=== PATIENT | male | born 1965 | race Caucasian/White ===

== ENCOUNTER → 2024-05-15 07:44 | Outpatient (BNVA) | payer BC, SELFPAY | PROVIDERS: PCP Nurse Practitioner Family; Visit Provider Nurse Practitioner | DX: S46.812A Strain of other muscles, fascia and tendons at shoulder and upper arm level, left arm, initial encounter; S46.012A Strain of muscle(s) and tendon(s) of the rotator cuff of left shoulder, initial encounter; M19.012 Primary osteoarthritis, left shoulder; X58.XXXA Exposure to other specified factors, initial encounter | CPT/HCPCS: 36415; 73030; 80053; 83036; 85025 ==

== ENCOUNTER 2024-05-19 07:47 | Day surgery (SDC) | payer BC, SELFPAY ==
[2024-05-19] VITALS (11 sets, daily range): BP systolic 103–127; BP diastolic 66–86; PULSE 46–69; RESP 10–22; TEMP 36.4–36.5; O2SAT 96–100; BMI 24.2
[2024-05-19] MEDS: acetaminophen 1,000 MG/100 ML PIGGYBACK 400 MG IV (08:25)
[2024-05-19] MEDS: sodium chloride 0.9% 1,000 ML 30 ML IV (08:28)
[2024-05-19] MEDS: CELEcoxib 200 mg Capsule 400 MG PO (08:31)
[2024-05-19] MEDS: gabapentin 300 mg Capsule PO (08:32)
--- NOTE | 2024-05-19 09:06 | P.HPUD_ITS ---
Surgery/Procedure H&P Update DATE OF PROCEDURE: May 19, 2024 DATE H&P PERFORMED: 05/15/24 H&P UPDATE INFORMATION: I have reviewed H&P completed within last 30 days, No changes to prior documentation and [place] [facility] date indicated PRIMARY INDICATION FOR PROCEDURE: MRI Impression: 1. Complete tear of the supraspinatus and infraspinatus with retraction to the AC joint. Associated muscular atrophy. 2. High-grade subscapularis tear with subluxation of the biceps tendon on the groove. 3. Severe acromioclavicular inflammatory change with associated synovial cyst. PLANNED PROCEDURE: Operation Date: 05/19/24 10:00 Proposed Procedures p Rotator Cuff Repair - Open(Left) - Suzette Gutierrez MD s Distal Clavicle Resection(Left) - Suzette Gutierrez MD Related Problem List Diagnoses (1) Osteoarthritis of left AC (acromioclavicular) joint: (2) Traumatic rupture of supraspinatus tendon of left shoulder: Qualifiers: Encounter type: initial encounter Qualified Code(s): S46.812A - Strain of other muscles, fascia and tendons at shoulder and upper arm level, left arm, initial encounter (3) Traumatic rupture of left infraspinatus tendon:
--- NOTE | 2024-05-19 09:27 | ANES.PREANE2 ---
Pre-Anesthetic Assessment Height/Weight: Height 1.68 m Weight 68.039 kg Temp Pulse Resp BP Pulse Ox O2 Del Method 97.7 F 46 L 16 127/86 100 Room Air 05/19/24 08:12 05/19/24 08:12 05/19/24 08:12 05/19/24 08:12 05/19/24 08:12 05/19/24 08:18 Operation Date: 05/19/24 10:00 Proposed Procedures p Rotator Cuff Repair - Open(Left) - Suzette Gutierrez MD s Distal Clavicle Resection(Left) - Suzette Gutierrez MD Familial anesthetic complications: None Was Beta Alexandra taken within 24 hours: N/A Was Clonidine taken within 24 hours: N/A Last intake: Intake Last Liquid Date 05/18/24 Last Liquid Time 20:30 Last Solid Date 05/18/24 Last Solid Time 20:00 Social Tobacco (Chewed at 0200) and No alcohol Exam alert, oriented x 3, clear to auscultation bilaterally and regular rate & rhythm Airway Mallampati: Class IV Dentition: full Anesthetic Plan ASA status: 1 Anesthesia: General and Regional (specify below) Risk of > 500 ml blood loss (7ml/kg in children): No Medications/Allergies Home Medications Medication Instructions Recorded Confirmed Last Taken Type garlic 300 mg PO DAILY 05/18/24 05/18/24 05/13/24 History omega-3 fatty acids 1,000 mg PO DAILY 05/18/24 05/18/24 05/13/24 History Allergies Allergy/AdvReac Type Severity Reaction Status Date / Time No Known Allergies Allergy Verified 05/18/24 15:55 Current Medications Generic Name Dose Route Start Last Admin Trade Name Freq PRN Reason Stop Dose Admin Sodium Chloride 1,000 mls @ 30 mls/hr 05/19/24 08:15 05/19/24 08:28 Sodium Chloride 0.9% IV 05/20/24 08:14 30 mls/hr .Q24H ALECIA Administration PFSH Anesthesia Social History Smoking and tobacco/nicotine status: never used tobacco/nicotine Data Anesthesia Cardiac Studies: No Data to Display
--- NOTE | 2024-05-19 09:28 | ANES.PROC ---
Anesthesia Procedures Procedure/Date: 05/19/24 Nerve Block ^: Nerve Block 1: Main Anesthesia: general anesthesia Time Out Performed: Yes Consent: requested by attending/covering physician, from patient, from other, risks and benefits reviewed and patient agrees to proceed Nerve block location: interscalene (L) Anesthesia monitors applied: pulse oximetry, EKG, BP cuff and oxygen Nerve block position: semi sitting Anesthetic Used: ropivicaine 0.5% (20 ml) and with decadron (4 mg) Ultrasound used to: recognize landmarks, visualize and ID brachial plexus, in supraclavicular region and visualize and ID interscalene groove Nerve Stimulator Used?: No Interscalene/Femoral BLK: 2 stimuplex 22 g needle used for position and inplane approach, visualize local anesthetic spread and no vascular puncture identified Injection: neg aspiration of heme Patient Tolerated Procedure: well Complications: none
[2024-05-19] MEDS: ceFAZolin 2,000 mg SDV 2000 MG IVP (09:31)
--- NOTE | 2024-05-19 10:34 | SUR.OPER ---
Parish LOYD DRAWN 50ML OF PT'S BLOOD. PLACED 50ML IN TO ELISABET WHOLE BLOOD BAG SIDE. PLACED 6ML ACD-A INTO THE WHOLE BLOOD. EXP DATE 04/16. STARTED ELISABET MACHINE. RECEIVED 2ML OF PRP AND 20ML PPP.
[2024-05-19] MEDS: ceFAZolin 1,000 mg SDV 1000 MG IRRIGATION (10:46)
--- NOTE | 2024-05-19 11:27 | SUR.OPER ---
1125 2ml PRP placed into left shoulder joint by Dr. Gutierrez
--- NOTE | 2024-05-19 13:20 | ANE.PACU2 ---
Inpatient post-anesthesia follow up: Airway intact: Yes Vital signs: Temperature 97.7 F Pulse Rate 62 Respiratory Rate 17 Blood Pressure 118/68 Pulse Oximetry 98 Oxygen Delivery Me thod Room Air Oxygen Flow Rate 2 Fraction of Inspir ed Oxygen Hydration adequate: Yes Nausea and vomiting: No Pain level: 1 Mental status: Baseline
--- NOTE | 2024-05-19 14:34 | PM.OP ---
Operative Report Date of procedure: May 19, 2024 Pre-op diagnosis: Left shoulder complete rotator cuff tear with acromioclavicular osteoarthritis, biceps tendinitis, and glenohumeral joint osteoarthritis Post-op diagnosis: Left shoulder complete rotator cuff tear with acromioclavicular osteoarthritis, biceps tendinitis, bursitis, and glenohumeral joint osteoarthritis Post-op findings: Complete rotator cuff tear of the left supraspinatus, infraspinatus, and significant biceps tendinitis with complete denudement of the humeral head posteriorly Procedure done: Left shoulder partial rotator cuff repair with biceps tenodesis, resection of distal clavicle, and acromioplasty with bursectomy Implants: None Specimens removed/disposition: Bursa, disposed of and distal clavicle, disposed of Pathology: None Surgeon: Suzette Gutierrez MD Tar Heater Operator: Sheila Middleton, nurse practitioner, whose services were required for completion of the surgical procedure, positioning of the arm, retraction of soft tissues and completion of the surgical procedure Anesthesia: General (Intubated, ASA 1 with supplemental interscalene block) Estimated blood loss (mL): 20 IV fluids (mL): 1,000 Urine output (mL): 0 (No Vaughn) Complications: None Findings: Very large rotator cuff tear involving the infraspinatus supraspinatus and a portion of the subscapularis with obvious significant tendinitis and thickening of the biceps tendon at the biceps groove Condition: stable Disposition: PACU (Then return to same-day surgery for discharge to home) Brief History: This 59-year-old gentleman presented to the office complaining of severe left shoulder pain. At the time of initial presentation, the patient rated his pain at 5 of 10. Previously, the patient began lifting weights in an attempt to become healthier and lose weight. While lifting weights, he noted that he was doing arm curls with 15 pounds weights and the weight tipped while he was holding it and he felt his shoulder pop. 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 He had an MRI and workup at [facility] and presented to the office. The MRI demonstrated a complete tear of the infraspinatus and supraspinatus with retraction to the acromioclavicular joint. There was associated muscle atrophy with a high-grade subscapularis tear and subluxation of the biceps tendon as well as severe acromioclavicular inflammatory change with associated synovial cyst. After being seen and evaluated in the office, the patient was offered surgical intervention in the form of acromioplasty with distal clavicle resection and evaluation of the rotator cuff to assess for possible repair. Patient understood, consents were signed, questions were answered. He presents today for this surgery. Procedure: The patient was brought to the operating theater and underwent general intubated anesthesia, ASA 1 with supplemental interscalene block.. The patient was placed in a beachchair position and subsequently the left upper extremity was prepped and draped in the usual fashion utilizing DuraPrep. The arm was draped free. A surgical pause was performed prior to commencement of the surgical procedure. At the time of the surgical pause, we confirmed the site and side of surgery as well as administration of appropriate preoperative antibiotics Ancef 2 g. MRI was also reviewed at that time. Following the surgical pause, an incision was made at approximately the level of the acromioclavicular joint extending across the anterolateral corner of the acromion and distally as necessary. Care was taken to avoid injury to the axillary nerve by limiting the distal extent of the incision. Dissection continued through skin and soft tissues using a scalpel. Hemostasis was obtained using electrocautery. Soft tissues were elevated off the acromion and the acromioclavicular joint. Attention was then directed to the acromioclavicular joint which was noted to be quite arthritic. There was significant synovitis about this area as well consistent with findings on the MRI. Distal clavicle was resected uneventfully. After it was resected, the undersurface of the clavicle was smoothed. There was noted to be a very large pointy type osteophyte off of the undersurface of the acromioclavicular joint. Both the undersurface and upper surface of the clavicle were smoothed using a power rasp. This was accomplished, the area was palpated to ensure there were no further osteophyte and attention was directed to the acromion. There was noted to be significant subacromial impingement with a large subacromial osteophyte as well. An acromioplasty was then accomplished using a combination of a saw and a power rasp. With this, we were able to remove compression caused by the acromion. The rotator cuff was then evaluated to look for tears. Shoulder was placed through full range of motion. There was noted to be a complete tear of the infraspinatus and supraspinatus tendons which were retracted back nearly to the glenoid. Anteriorly, there was a tear in the subscapularis which was horizontal in nature. The biceps tendon demonstrated evidence of tenosynovitis as well, but this was located within the trochlear groove. After the acromioplasty was accomplished, the rotator cuff edges were freshened and were sutured utilizing 0 Ethibond in interrupted fashion. We were able to close the anterior portion of the supraspinatus as well as the extension of the tear into the subscapularis. With this, we also performed a biceps tenodesis suturing the tendon at the groove and also to the available rotator cuff tissue. Intra-articular resection of the biceps tendon was not accomplished as it was felt to be an effective head depressor. Once this was accomplished the shoulder was again put through range of motion. The wound was irrigated and closure was accomplished with 0 Vicryl in the capsular tissues overlying the acromioclavicular joint area as well as over the acromion and down into the deltoid muscle. 3-0 Monocryl was used to close the subcutaneous tissues followed by 4-0 Monocryl subcuticular closure. This was followed by Dermabond, Steri-Strips, Telfa, and Tegaderm. The patient was placed in a slingshot style sling and was returned to the recovery room in satisfactory condition. The patient will be discharged to home to follow-up in the office as scheduled. There were no complications and no specimens. Related Problem List Diagnoses (1) Traumatic rupture of supraspinatus tendon of left shoulder: (2) Traumatic rupture of left infraspinatus tendon: (3) Osteoarthritis of left AC (acromioclavicular) joint: (4) Primary osteoarthritis, left shoulder:
== END 2024-05-19 13:20 | disposition home or self-care (01) ==
PROVIDERS: PCP Nurse Practitioner Family; Visit Provider Specialist
PROC: (CPT 23430; principal; 2024-05-19 09:40)
PROC: (CPT 23120; 2024-05-19 09:40)
PROC: (CPT 23430; 2024-05-19 09:40)
PROC: (CPT 23130; 2024-05-19 09:40)
DX: M75.122 Complete rotator cuff tear or rupture of left shoulder, not specified as traumatic (principal); M19.012 Primary osteoarthritis, left shoulder; M75.22 Bicipital tendinitis, left shoulder; S46.812A Strain of other muscles, fascia and tendons at shoulder and upper arm level, left arm, initial encounter; X50.0XXA Overexertion from strenuous movement or load, initial encounter; Y93.B9 Activity, other involving muscle strengthening exercises
CPT/HCPCS: 23430; 23410; 23120; J0131; J0690; J1100; J2371; J2405; J2704; J2795; J3010; J3490; J7030

== ENCOUNTER 2024-06-20 06:18 | Outpatient (RCR) | payer BC, SELFPAY | END 2024-07-20 23:59 | disposition home or self-care (01) | LOC: SPT 06:18 | PROVIDERS: Visit Provider Nurse Practitioner | DX: Z98.890 Other specified postprocedural states (principal) | CPT/HCPCS: 97161 ==

== ENCOUNTER 2024-07-21 05:00 | Outpatient (RCR) | payer BC, SELFPAY | END 2024-08-19 23:59 | disposition home or self-care (01) | LOC: SPT 05:00 | PROVIDERS: Visit Provider Nurse Practitioner | DX: Z98.890 Other specified postprocedural states (principal) | CPT/HCPCS: 97110; 97112; 97140; 97535 ==

== ENCOUNTER 2024-08-20 05:00 | Outpatient (RCR) | payer BC, SELFPAY | END 2024-09-19 23:59 | disposition home or self-care (01) | LOC: SPT 05:00 | PROVIDERS: Visit Provider Nurse Practitioner | DX: Z98.890 Other specified postprocedural states (principal) | CPT/HCPCS: 97110; 97112; 97140; 97164; 97535 ==

== ENCOUNTER 2024-12-10 07:29 | Day surgery (SDC) | payer BC, SELFPAY ==
[2024-12-10 07:59] VITALS: BP 120/77; PULSE 51; RESP 18; TEMP 36.3; O2SAT 96; BMI 25.0
--- NOTE | 2024-12-10 08:12 | P.HPUD_ITS ---
Surgery/Procedure H&P Update DATE OF PROCEDURE: December 10, 2024 DATE H&P PERFORMED: 11/11/24 H&P UPDATE INFORMATION: I have reviewed H&P completed within last 30 days, I have examined patient prior to procedure, No changes to prior documentation, H&P is in [facility] E[facility] on date indicated and Risks and benefits of the procedure reviewed PLANNED PROCEDURE: Operation Date: 12/10/24 09:00 Proposed Procedures p Colonoscopy [id number], Z12.11(Not Applicable) - Valeriano Sung MD
--- NOTE | 2024-12-10 09:01 | ANES.PREANE2 ---
Pre-Anesthetic Assessment Height/Weight: Height 1.65 m Weight 68.039 kg Temp Pulse Resp BP Pulse Ox O2 Del Method 97.3 F L 51 L 18 120/77 96 Room Air 12/10/24 07:59 12/10/24 07:59 12/10/24 07:59 12/10/24 07:59 12/10/24 07:59 12/10/24 07:59 Preop Diagnosis: screening Operation Date: 12/10/24 09:00 Proposed Procedures p Colonoscopy [id number], Z12.11(Not Applicable) - Valeriano Sung MD Familial anesthetic complications: none Was Beta Alexandra taken within 24 hours: N/A Was Clonidine taken within 24 hours: N/A Last intake: Intake Last Liquid Date 12/09/24 Last Liquid Time 23:00 Last Solid Date 12/08/24 Last Solid Time 20:00 Social No alcohol and No tobacco (quit 2 weeks ago) Exam alert, oriented x 3 and clear to auscultation bilaterally Airway Mallampati: Class II Dentition: full History/ROS No significant history except as noted Pulmonary None reported CV/HEM None reported None reported Hepatic None reported GI None reported Metabolic None reported Musc/skel None reported Neuropsych None reported Anesthetic Plan ASA status: 2 Anesthesia: Anesthesia Evaluation and MAC Risk of > 500 ml blood loss (7ml/kg in children): Yes, adequate IV access and fluids planned Medications/Allergies Home Medications ?Medication ?Instructions ?Recorded ?Confirmed ?Last Taken ?Type garlic 300 mg PO DAILY 05/18/24 12/08/24 12/07/24 History omega-3 fatty acids 1,000 mg PO DAILY 05/18/24 12/08/24 12/07/24 History hydrocortisone 2.5 % topical cream 1 applic OK BID hemorrhoids 7 days 11/11/24 12/08/24 12/07/24 Rx with perineal applicator #30 grams (Anusol-HC) latanoprost 0.005 % eye drops 1 drp ophthalmic (eye) QPM 11/11/24 12/08/24 12/07/24 History polyethylene glycol 3350 17 17 g PO DAILY 30 days #238 grams 11/11/24 12/08/24 12/07/24 Rx gram/dose oral powder (Miralax) testosterone 1 pump topical DAILY 11/11/24 12/08/24 12/07/24 History Allergies Allergy/AdvReac Type Severity Reaction Status Date / Time No Known Allergies Allergy Verified 12/08/24 08:43 Current Medications Generic Name Dose Route Start Last Admin Trade Name Freq PRN Reason Stop Dose Admin Sodium Chloride 1,000 mls @ 15 mls/hr 12/10/24 07:41 12/10/24 08:05 Sodium Chloride 0.9% IV 12/11/24 07:40 15 mls/hr .Q24H PRN Administration COLONOSCOPY FLUIDS PFSH Anesthesia Surgical History S/P shoulder surgery Date of procedure: May 19, 2024 Pre-op diagnosis: Left shoulder complete rotator cuff tear with acromioclavicular osteoarthritis, biceps tendinitis, and glenohumeral joint osteoarthritis. Procedure done: Left shoulder partial rotator cuff repair with biceps tenodesis, resection of distal clavicle, and acromioplasty with bursectomy. Surgeon: Suzette Gutierrez MD Social History Smoking and tobacco/nicotine status: never used tobacco/nicotine
[2024-12-10 09:57] VITALS: BP 96/56; PULSE 57; RESP 16; TEMP 36.4; O2SAT 96
[2024-12-10 10:07] VITALS: BP 96/54; PULSE 72; RESP 16; O2SAT 98
--- NOTE | 2024-12-10 11:33 | SUR.OPER ---
formerly [facility] time [id number]
--- NOTE | 2024-12-10 15:30 | ANE.PACU2 ---
Inpatient post-anesthesia follow up: Airway intact: Yes Vital signs: Temperature 97.6 F Pulse Rate 72 Respiratory Rate 16 Blood Pressure 96/54 Pulse Oximetry 98 Oxygen Delivery Me thod Room Air Oxygen Flow Rate Fraction of Inspir ed Oxygen Hydration adequate: Yes Nausea and vomiting: No Pain level: 1 Mental status: Baseline
== END 2024-12-10 10:30 | disposition home or self-care (01) ==
PROVIDERS: Visit Provider Surgery
PROC: 0DJD8ZZ Inspection of Lower Intestinal Tract, Via Natural or Artificial Opening Endoscopic (ICD-10-PCS; CPT 45378; principal; 2024-12-10 09:00)
DX: Z12.11 Encounter for screening for malignant neoplasm of colon (principal); K57.30 Diverticulosis of large intestine without perforation or abscess without bleeding; K64.8 Other hemorrhoids; K62.1 Rectal polyp
CPT/HCPCS: 45380; 88305; J2704; J3490; J7030; J9999